=== PATIENT | male | born 1935 | race Caucasian/White ===

== ENCOUNTER 2021-04-05 13:12 | Inpatient (IN) | payer MEDICARE, OTHER ==
[2021-04-05] MEDS ORDERED: Ondansetron 4 MG Tab.DIS PO ONE (13:25)
[2021-04-05 14:00] LABS: ANION GAP 11.2 meq/L (7-15)
[2021-04-05] MEDS ORDERED: Sodium Chloride 0.9% 1,000 ML IV ONE (14:06)
[2021-04-05] MEDS ORDERED: Sodium Chloride 0.9% 10 ML Syringe FLUSH PRN (14:06)
[2021-04-05] MEDS ORDERED: Iopamidol 612 MG/ML 100 ML Bottle IVPUSH ONE (14:17)
[2021-04-05] MEDS ORDERED: Morphine 2 MG/ML SYRINGE SUBCUT PRN (15:04)
[2021-04-05] MEDS ORDERED: Morphine 2 MG/ML SYRINGE IV PRN (15:25)
--- NOTE | 2021-04-05 18:18 | EDM.PDOC ---
ED HPI GENERAL MEDICAL PROBLEM - General Chief Complaint: Abdominal Pain Stated Complaint: abdominal pain Time Seen by Provider: 04/05/21 13:24 Source of Information: Reports: Patient History Limitations: Reports: No Limitations - History of Present Illness INITIAL COMMENTS - FREE TEXT/NARRATIVE: abdominal pain/centrally, for several days. Nausea and some emesis today. Nonbilious/nonbloody. No fevers. Pain can be very sharp at times, 9/10. No previous similar pain. No history of any abdominal surgery. No bowel movement for several days. Decreased appetite. Middle Abdominal Pain Score (Numeric/FACES): 3 - Related Data Allergies Allergy/AdvReac Type Severity Reaction Status Date / Time No Known Allergies Allergy Verified 04/05/21 13:17 Home Meds: Home Meds atorvaSTATin [Lipitor] 20 mg PO DAILY 09/10/14 [History] Multivitamin with Minerals [Multiple Vitamin] 1 tab PO DAILY 08/20/16 [History] Past Medical History Cardiovascular History: Reports: Arrhythmia, CAD, High Cholesterol - Past Surgical History HEENT Surgical History: Reports: Cataract Surgery Male Surgical History: Reports: TURP-Transurethral Resection of Prostate Musculoskeletal Surgical History: Reports: Other (See Below) Other Musculoskeletal Surgeries/Procedures:: Cyst removal from left shoulder Dermatological Surgical History: Reports: Skin Graft Social & Family History - Family History Family Medical History: No Pertinent Family History - Tobacco Use Tobacco Use Status *Q: Never Tobacco User Second Hand Smoke Exposure: No - Caffeine Use Caffeine Use: Reports: Coffee - Recreational Drug Use Recreational Drug Use: No ED ROS GENERAL - Review of Systems Review Of Systems: See Below Constitutional: Reports: Chills, Diaphoresis, Decreased Appetite. Denies: Fever, Night Sweats HEENT: Reports: No Symptoms Respiratory: Reports: No Symptoms Cardiovascular: Reports: No Symptoms GI/Abdominal: Reports: Abdominal Pain, Decreased Appetite, Nausea, Vomiting, Other (no passing stool or gas for two days). Denies: Difficulty Swallowing, Distension, Hematemesis, Hematochezia : Reports: No Symptoms Musculoskeletal: Reports: Other (no acute changes from baseline) Skin: Reports: No Symptoms Neurological: Reports: No Symptoms Psychiatric: Reports: No Symptoms ED EXAM, GENERAL - Physical Exam Exam: See Below Exam Limited By: No Limitations General Appearance: Alert, Mild Distress Eye Exam: Bilateral Eye: EOMI, PERRL Ears: Hearing Grossly Normal Throat/Mouth: Normal Lips, Normal Voice, No Airway Compromise Head: Atraumatic, Normocephalic Neck: Supple Respiratory/Chest: No Respiratory Distress, Lungs Clear, Normal Breath Sounds, No Accessory Muscle Use, Chest Non-Tender Cardiovascular: Regular Rate, Rhythm, No Murmur GI/Abdominal: Soft, No Distention, Tender, Abnormal Bowel Sounds (no bowel sounds noted). No: Guarding, Rigid, Rebound (Male) Exam: Deferred Rectal (Males) Exam: Deferred Back Exam: No: CVA Tenderness (L), CVA Tenderness (R), Muscle Spasm Extremities: Normal Inspection, Normal Capillary Refill Neurological: Alert, Oriented, Normal Cognition, No Motor/Sensory Deficits Psychiatric: Normal Affect, Normal Mood Skin Exam: Warm, Dry, Intact, Normal Color Course - Vital Signs Last Recorded V/S: Last Vital Signs Temp 36.5 C 04/05/21 17:00 Pulse 76 04/05/21 17:00 Resp 18 04/05/21 17:00 BP 141/87 H 04/05/21 17:00 Pulse Ox 97 04/05/21 17:00 - Orders/Labs/Meds Orders: Active Orders 24 hr Category Date Time Status Abdomen Pelvis w Cont [CT] Stat Exams 04/05/21 14:05 Taken Abdomen Series w Chest 1V [CR] Stat Exams 04/05/21 13:25 Taken UA W/MICROSCOPIC [URIN] Stat Lab 04/05/21 14:07 Ordered Morphine Med 04/05/21 15:25 Active 2 mg IV Q1H PRN Sodium Chloride 0.9% [Saline Flush] Med 04/05/21 14:06 Active 10 ml FLUSH ASDIRECTED PRN Saline Lock Insert [OM.PC] Routine Oth 04/05/21 14:06 Ordered Medication Orders Morphine Sulfate (Morphine 2 Mg/Ml Syringe) 2 mg IV Q1H PRN PRN Reason: Pain Last Admin: 04/05/21 15:39 Dose: 2 mg Documented by: RACHEL Sodium Chloride (Sodium Chloride 0.9% 10 Ml Syringe) 10 ml FLUSH ASDIRECTED PRN PRN Reason: Keep Vein Open Labs: Laboratory Tests 04/05/21 04/05/21 04/05/21 Range/Units 13:35 13:35 13:35 WBC 8.6 (4.0-10.2) K/uL RBC 5.59 H (4.33-5.41) M/uL Hgb 16.8 (13.1-16.8) g/dL Hct 49.0 (39.0-49.0) % MCV 87.7 (84.0-98.0) fL MCH 30.1 (28.2-33.3) pg MCHC 34.3 (31.7-36.0) g/dL RDW 14.3 H (11.2-14.1) % Plt Count 214 (150-350) K/uL Neut % (Auto) 76.6 (45.0-80.0) % Lymph % (Auto) 9.2 L (10.0-50.0) % [place] % (Auto) 13.9 (2.0-14.0) % Eos % (Auto) 0.2 (0.0-5.0) % Baso % (Auto) 0.1 (0.0-2.0) % Neut # (Auto) 6.54 (1.40-7.00) K/uL Lymph # (Auto) 0.79 (0.50-3.50) K/uL [place] # (Auto) 1.19 H (0.00-1.00) K/uL Eos # (Auto) 0.02 (0.00-0.50) K/uL Baso # (Auto) 0.01 (0.00-0.20) K/uL Sodium 142 (136-145) mmol/L Potassium 4.1 (3.5-5.1) mmol/L Chloride 106 (98-107) mmol/L Carbon Dioxide 24.8 (21.0-32.0) mmol/L Anion Gap 11.2 (7-15) meq/L BUN 28 H (7-18) mg/dL Creatinine 1.20 H (0.51-1.17) mg/dL Est Cr Clr Drug Dosing 38.40 mL/min Estimated GFR (MDRD) 57 mL/min Glucose 142 H (70-99) mg/dL Lactic Acid 1.7 (0.4-2.0) mmol/L Calcium 8.9 (8.5-10.1) mg/dL Total Bilirubin 0.9 (0.2-1.0) mg/dL AST 15 (15-37) U/L ALT 26 (12-78) U/L Alkaline Phosphatase 73 (46-116) IU/L Total Protein 6.8 (6.4-8.2) g/dL Albumin 3.6 (3.4-5.0) g/dL Meds: Medications Generic Name Dose Route Start Last Admin Trade Name Freq PRN Reason Stop Dose Admin Morphine Sulfate 2 mg 04/05/21 15:25 04/05/21 15:39 Morphine 2 Mg/Ml Syringe IV 2 mg Q1H PRN Administration Pain Sodium Chloride 10 ml 04/05/21 14:06 Sodium Chloride 0.9% 10 Ml Syringe FLUSH ASDIRECTED PRN Keep Vein Open Discontinued Medications Generic Name Dose Route Start Last Admin Trade Name Freq PRN Reason Stop Dose Admin Sodium Chloride 1,000 mls @ 500 mls/hr 04/05/21 14:06 04/05/21 14:15 Normal Saline IV 04/05/21 16:05 500 mls/hr .BOLUS ONE Administration Iopamidol 100 ml 04/05/21 14:17 04/05/21 14:34 Iopamidol 612 Mg/Ml 100 Ml Bottle IVPUSH 04/05/21 14:18 100 ml ONETIME ONE Administration Morphine Sulfate 2 mg 04/05/21 15:04 Morphine 2 Mg/Ml Syringe SUBCUT Q1H PRN Pain Ondansetron HCl 4 mg 04/05/21 13:25 04/05/21 14:00 Ondansetron 4 Mg Tab.Dis PO 04/05/21 13:26 4 mg ONETIME ONE Administration - Re-Assessments/Exams Free Text/Narrative Re-Assessment/Exam: 04/05/21 18:18 CBC/Chem/lactic unremarkable overall. Plain film suggested obstruction. Small bowel obstruction confirmed by CT at 3:16pm. Results discussed patient patient and his . Plan is to admit NPO for further treatment of SBO. Departure - Departure Time of Disposition: 16:00 Disposition: Admitted As Inpatient 64 Condition: Good Clinical Impression: Small bowel obstruction - Discharge Information *PRESCRIPTION DRUG MONITORING PROGRAM REVIEWED*: Not Applicable *COPY OF PRESCRIPTION DRUG MONITORING REPORT IN PATIENT PIOTR: Not Applicable Sepsis Event Note (ED) - Evaluation Sepsis Screening Result: No Definite Risk - Focused Exam Vital Signs: Vital Signs Temp Pulse Resp BP Pulse Ox 04/05/21 13:36 128/75 04/05/21 13:18 36.2 C 87 18 127/77 97 - Problem List & Annotations (1) Small bowel obstruction SNOMED Code(s): 082791197 Code(s): K56.609 - UNSP INTESTNL OBST, UNSP TO PARTIAL VERSUS COMPLETE OBST Status: Acute Priority: High Current Visit: Yes Onset Date: ~04/03/21 Annotation/Comment:: Bowel rest/IV fluids. Consider transfer to [place] depending upon clinical course. (2) Hyperlipidemia SNOMED Code(s): 17081604 Code(s): E78.5 - HYPERLIPIDEMIA, UNSPECIFIED Status: Chronic Priority: Low Current Visit: No Annotation/Comment:: under therapy Qualifiers: Hyperlipidemia type: unspecified Qualified Code(s): E78.5 - Hyperlipidemia, unspecified - Problem List Review Problem List Initiated/Reviewed/Updated: Yes - My Orders Last 24 Hours: My Active Orders 04/05/21 13:25 Abdomen Series w Chest 1V [CR] Stat 04/05/21 14:05 Abdomen Pelvis w Cont [CT] Stat 04/05/21 14:06 Sodium Chloride 0.9% [Saline Flush] 10 ml FLUSH ASDIRECTED PRN Saline Lock Insert [OM.PC] Routine 04/05/21 14:07 UA W/MICROSCOPIC [URIN] Stat 04/05/21 15:25 Morphine 2 mg IV Q1H PRN - Assessment/Plan Admission H&P: Please use this note as an admission H&P Last 24 Hours: My Active Orders 04/05/21 13:25 Abdomen Series w Chest 1V [CR] Stat 04/05/21 14:05 Abdomen Pelvis w Cont [CT] Stat 04/05/21 14:06 Sodium Chloride 0.9% [Saline Flush] 10 ml FLUSH ASDIRECTED PRN Saline Lock Insert [OM.PC] Routine 04/05/21 14:07 UA W/MICROSCOPIC [URIN] Stat 04/05/21 15:25 Morphine 2 mg IV Q1H PRN Assessment:: as above Plan: as above. Patient and his wish to have him admitted here locally and try bowel rest/fluid support. Anticipate 3-4 day stay depending upon clinical course. Transfer if no improvement/surgical consult needed.
[2021-04-05] MEDS: Sodium Chloride 0.9% 1,000 ML IV SCH (18:29)
[2021-04-05] MEDS ORDERED: Ondansetron 4 MG/2 ML SDV IVPUSH PRN (20:34)
[2021-04-06] MEDS: Sodium Chloride 0.9% 1,000 ML IV SCH ×2 (07:42→20:50)
[2021-04-06] MEDS: Enoxaparin 40 MG/0.4 ML Syringe SUBCUT SCH (07:42)
[2021-04-06] MEDS: atorvaSTATin 10 MG Tab PO SCH (07:50)
[2021-04-06 07:51] LABS: ANION GAP 9.4 meq/L (7-15); CHLORIDE,CL 107 mmol/L (98-107); SODIUM,NA 142 mmol/L (136-145)
[2021-04-06] MEDS ORDERED: Diatrizoate Meglumine/Diatrizoate Sodium 37% 30 ML Bottle PO ONE (17:29)
--- NOTE | 2021-04-06 17:54 | PCM.PN ---
- General Info Date of Service: 04/06/21 Admission Dx/Problem (Free Text): SBO Subjective Update: Pain has improved. Small amount flatus this AM but none since. Small amount emesis x1 today. Functional Status: Reports: Pain Controlled. Denies: New Symptoms - Review of Systems General: Denies: Fever, Weakness, Chills, Night Sweats, Appetite HEENT: Reports: No Symptoms Pulmonary: Reports: No Symptoms Cardiovascular: Reports: No Symptoms Gastrointestinal: Reports: Decreased Appetite, Flatus (minimal/this AM), Other (Abd pain improved today/minimal discomfort) Genitourinary: Reports: No Symptoms Musculoskeletal: Reports: Other (No acute changes from baseline) Skin: Reports: No Symptoms Neurological: Reports: No Symptoms Psychiatric: Reports: No Symptoms - Patient Data Vitals - Most Recent: Last Vital Signs Temp 36.3 C 04/06/21 17:46 Pulse 81 04/06/21 17:46 Resp 16 04/06/21 17:46 BP 149/86 H 04/06/21 17:46 Pulse Ox 97 04/06/21 17:46 Weight - Most Recent: 76.657 kg Lab Results Last 24 Hours: Laboratory Results - last 24 hr 04/06/21 04/06/21 04/06/21 Range/Units 01:10 07:25 07:25 WBC 5.8 (4.0-10.2) K/uL RBC 5.12 (4.33-5.41) M/uL Hgb 15.5 (13.1-16.8) g/dL Hct 46.0 (39.0-49.0) % MCV 89.8 (84.0-98.0) fL MCH 30.3 (28.2-33.3) pg MCHC 33.7 (31.7-36.0) g/dL RDW 14.4 H (11.2-14.1) % Plt Count 189 (150-350) K/uL Neut % (Auto) 71.5 (45.0-80.0) % Lymph % (Auto) 13.3 (10.0-50.0) % [place] % (Auto) 14.6 H (2.0-14.0) % Eos % (Auto) 0.3 (0.0-5.0) % Baso % (Auto) 0.3 (0.0-2.0) % Neut # (Auto) 4.15 (1.40-7.00) K/uL Lymph # (Auto) 0.77 (0.50-3.50) K/uL [place] # (Auto) 0.85 (0.00-1.00) K/uL Eos # (Auto) 0.02 (0.00-0.50) K/uL Baso # (Auto) 0.02 (0.00-0.20) K/uL Sodium 142 (136-145) mmol/L Potassium 4.0 (3.5-5.1) mmol/L Chloride 107 (98-107) mmol/L Carbon Dioxide 25.6 (21.0-32.0) mmol/L Anion Gap 9.4 (7-15) meq/L BUN 31 H (7-18) mg/dL Creatinine 1.11 (0.51-1.17) mg/dL Est Cr Clr Drug Dosing 41.51 mL/min Estimated GFR (MDRD) > 60 mL/min Glucose 118 H (70-99) mg/dL Calcium 8.3 L (8.5-10.1) mg/dL Specimen Type Urinvoid Urine Color Yellow Urine Appearance Cloudy Urine pH 7.0 (5.0-9.0) Ur Specific [place] 1.015 (1.005-1.030) Urine Protein 30 H (NEGATIVE) mg/dL Urine Glucose (UA) Negative (NEGATIVE) mg/dL Urine Ketones Trace H (NEGATIVE) mg/dL Urine Occult Blood Moderate H (NEGATIVE) Urine Nitrite Positive H (NEGATIVE) Urine Bilirubin Negative (NEGATIVE) Urine Urobilinogen 0.2 (0.2-1.0) E.U./dL Ur Leukocyte Esterase Negative (NEGATIVE) Urine RBC 0-5 /HPF Urine WBC 10-20 H /HPF Ur Epithelial Cells Occasional /LPF Other Crystals Few /HPF Urine Bacteria Few (NONE TO FEW) /HPF Med Orders - Current: Current Medications Atorvastatin Calcium (Atorvastatin 10 Mg Tab) 20 mg PO DAILY [facility] Last Admin: 04/06/21 07:50 Dose: Not Given Documented by: Enoxaparin Sodium (Enoxaparin 40 Mg/0.4 Ml Syringe) 40 mg SUBCUT DAILY [facility] Last Admin: 04/06/21 07:42 Dose: 40 mg Documented by: Sodium Chloride (Normal Saline) 1,000 mls @ 75 mls/hr IV ASDIRECTED [facility]IL[facility] Last Admin: 04/06/21 07:42 Dose: 75 mls/hr Documented by: Morphine Sulfate (Morphine 2 Mg/Ml Syringe) 2 mg IV Q1H PRN PRN Reason: Pain Last Admin: 04/05/21 15:39 Dose: 2 mg Documented by: Ondansetron HCl (Ondansetron 4 Mg/2 Ml Sdv) 4 mg IVPUSH Q6H PRN PRN Reason: Nausea/Vomiting Sodium Chloride (Sodium Chloride 0.9% 10 Ml Syringe) 10 ml FLUSH ASDIRECTED PRN PRN Reason: Keep Vein Open Last Admin: 04/05/21 18:29 Dose: 10 ml Documented by: Discontinued Medications Diatrizoate Meglum/Diatrizoate Sod (Diatrizoate Meglumine/Diatrizoate Sodium 37% 30 Ml Bottle) 15 ml PO ONETIME ONE Stop: 04/06/21 17:30 Last Admin: 04/06/21 17:48 Dose: 15 ml Documented by: Sodium Chloride (Normal Saline) 1,000 mls @ 500 mls/hr IV .BOLUS ONE Stop: 04/05/21 16:05 Last Admin: 04/05/21 14:15 Dose: 500 mls/hr Documented by: Iopamidol (Iopamidol 612 Mg/Ml 100 Ml Bottle) 100 ml IVPUSH ONETIME ONE Stop: 04/05/21 14:18 Last Admin: 04/05/21 14:34 Dose: 100 ml Documented by: Morphine Sulfate (Morphine 2 Mg/Ml Syringe) 2 mg SUBCUT Q1H PRN PRN Reason: Pain Ondansetron HCl (Ondansetron 4 Mg Tab.Dis) 4 mg PO ONETIME ONE Stop: 04/05/21 13:26 Last Admin: 04/05/21 14:00 Dose: 4 mg Documented by: - Exam Quality Assessment: DVT Prophylaxis General: Alert, Oriented, Cooperative, No Acute Distress HEENT: Pupils Equal, Pupils Reactive, EOMI, Mucous Membr. Moist/[place] Neck: Supple Lungs: Clear to Auscultation, Normal Respiratory Effort Cardiovascular: Regular Rate, Regular Rhythm GI/Abdominal Exam: Soft, Tender (mild), Abnormal Bowel Sounds (absent). No: Guarding, Rigid, Rebound (Male) Exam: Deferred Back Exam: No: Muscle Spasm Extremities: Normal Inspection, Normal Capillary Refill Skin: Warm, Dry Neurological: No New Focal Deficit Psy/Mental Status: Alert, Normal Affect, Normal Mood - Patient Data Lab Results Last 24 hrs: Laboratory Results - last 24 hr 04/06/21 04/06/21 04/06/21 Range/Units 01:10 07:25 07:25 WBC 5.8 (4.0-10.2) K/uL RBC 5.12 (4.33-5.41) M/uL Hgb 15.5 (13.1-16.8) g/dL Hct 46.0 (39.0-49.0) % MCV 89.8 (84.0-98.0) fL MCH 30.3 (28.2-33.3) pg MCHC 33.7 (31.7-36.0) g/dL RDW 14.4 H (11.2-14.1) % Plt Count 189 (150-350) K/uL Neut % (Auto) 71.5 (45.0-80.0) % Lymph % (Auto) 13.3 (10.0-50.0) % [place] % (Auto) 14.6 H (2.0-14.0) % Eos % (Auto) 0.3 (0.0-5.0) % Baso % (Auto) 0.3 (0.0-2.0) % Neut # (Auto) 4.15 (1.40-7.00) K/uL Lymph # (Auto) 0.77 (0.50-3.50) K/uL [place] # (Auto) 0.85 (0.00-1.00) K/uL Eos # (Auto) 0.02 (0.00-0.50) K/uL Baso # (Auto) 0.02 (0.00-0.20) K/uL Sodium 142 (136-145) mmol/L Potassium 4.0 (3.5-5.1) mmol/L Chloride 107 (98-107) mmol/L Carbon Dioxide 25.6 (21.0-32.0) mmol/L Anion Gap 9.4 (7-15) meq/L BUN 31 H (7-18) mg/dL Creatinine 1.11 (0.51-1.17) mg/dL Est Cr Clr Drug Dosing 41.51 mL/min Estimated GFR (MDRD) > 60 mL/min Glucose 118 H (70-99) mg/dL Calcium 8.3 L (8.5-10.1) mg/dL Specimen Type Urinvoid Urine Color Yellow Urine Appearance Cloudy Urine pH 7.0 (5.0-9.0) Ur Specific [place] 1.015 (1.005-1.030) Urine Protein 30 H (NEGATIVE) mg/dL Urine Glucose (UA) Negative (NEGATIVE) mg/dL Urine Ketones Trace H (NEGATIVE) mg/dL Urine Occult Blood Moderate H (NEGATIVE) Urine Nitrite Positive H (NEGATIVE) Urine Bilirubin Negative (NEGATIVE) Urine Urobilinogen 0.2 (0.2-1.0) E.U./dL Ur Leukocyte Esterase Negative (NEGATIVE) Urine RBC 0-5 /HPF Urine WBC 10-20 H /HPF Ur Epithelial Cells Occasional /LPF Other Crystals Few /HPF Urine Bacteria Few (NONE TO FEW) /HPF Result Diagrams: 04/06/21 07:25 04/06/21 07:25 Sepsis Event Note - Evaluation Sepsis Screening Result: No Definite Risk - Focused Exam Vital Signs: Vital Signs Temp Pulse Resp BP Pulse Ox 04/06/21 17:46 36.3 C 81 16 149/86 H 97 04/06/21 07:54 36.3 C 68 16 150/91 H 94 L - Problem List & Annotations (1) Small bowel obstruction SNOMED Code(s): 291720616 Code(s): K56.609 - UNSP INTESTNL OBST, UNSP TO PARTIAL VERSUS COMPLETE O BST Status: Acute Priority: High Current Visit: Yes Onset Date: ~04/03/21 Annotation/Comment:: Bowel rest/IV fluids. No emesis noted other than small amount earlier this morning. Currently not passing gas but pain improved. Xray shows no improvement of obstruction (2) Hyperlipidemia SNOMED Code(s): 74319855 Code(s): E78.5 - HYPERLIPIDEMIA, UNSPECIFIED Status: Chronic Priority: Low Current Visit: No Qualifiers: Hyperlipidemia type: unspecified Qualified Code(s): E78.5 - Hyperlipidemia, unspecified Annotation/Comment:: under therapy - Problem List Review Problem List Initiated/Reviewed/Updated: Yes - My Orders Last 24 Hours: My Active Orders 04/05/21 Dinner Nothing per Oral Now Diet [DIET] 04/05/21 18:15 Sodium Chloride 0.9% [Normal Saline] 1,000 ml IV ASDIRECTED 04/05/21 20:34 Patient Status [ADT] Routine Height and Weight [RC] 08 May Shower [RC] 08,20 Oxygen Therapy [RC] PRN Up ad Negar [RC] ASDIRECTED VTE/DVT Education [RC] PER UNIT ROUTINE Vital Signs [RC] Q6HR Ondansetron [Zofran] 4 mg IVPUSH Q6H PRN Resuscitation Status Routine 04/05/21 20:36 Intake and Output [RC] 06,18 Pulse Oximetry [RC] PRN 04/06/21 08:00 Enoxaparin [Lovenox] 40 mg SUBCUT DAILY atorvaSTATin [Lipitor] 20 mg PO DAILY 04/06/21 13:29 UA RFX GO AND CULT IF INDIC [URIN] Stat 04/06/21 16:00 Abdomen 1V Upright [CR] Timed - Assessment Assessment:: SBO. - Plan Plan:: Reviewed patient with Dr.Dyer Ayaz/Hospitalist. She recommended trying a half a dose of gastrografin as it might help improve the obstruction and get things moving. They are willing to consider transfer to their facility tomorrow if no improvement is noted. Patient and agreeable with this plan.
[2021-04-07] MEDS: Enoxaparin 40 MG/0.4 ML Syringe SUBCUT SCH (08:44)
[2021-04-07] MEDS: atorvaSTATin 10 MG Tab PO SCH (08:45)
[2021-04-07] MEDS: Sodium Chloride 0.9% 1,000 ML IV SCH ×2 (08:45→23:45)
--- NOTE | 2021-04-07 10:10 | PCM.PN ---
- General Info Date of Service: 04/07/21 Admission Dx/Problem (Free Text): SBO Subjective Update: Pain pretty much resolved. Reports passing gas the last few hours. No BM. No nausea or vomiting noted. Functional Status: Reports: Pain Controlled - Review of Systems General: Reports: No Symptoms HEENT: Reports: No Symptoms Pulmonary: Reports: No Symptoms Cardiovascular: Reports: No Symptoms Gastrointestinal: Reports: Flatus. Denies: Abdominal Pain, Nausea, Vomiting Genitourinary: Reports: No Symptoms Musculoskeletal: Reports: No Symptoms Skin: Reports: No Symptoms Neurological: Reports: No Symptoms Psychiatric: Reports: No Symptoms - Patient Data Vitals - Most Recent: Last Vital Signs Temp 36.6 C 04/07/21 08:00 Pulse 60 04/07/21 08:00 Resp 16 04/07/21 08:00 BP 146/82 H 04/07/21 08:00 Pulse Ox 95 04/07/21 08:00 Weight - Most Recent: 76.657 kg I&O - Last 24 Hours: Intake & Output 04/06/21 04/07/21 04/07/21 22:59 06:59 14:59 Intake Total 1745 Balance 1745 Med Orders - Current: Current Medications Atorvastatin Calcium (Atorvastatin 10 Mg Tab) 20 mg PO DAILY [facility] Last Admin: 04/07/21 08:45 Dose: Not Given Documented by: Enoxaparin Sodium (Enoxaparin 40 Mg/0.4 Ml Syringe) 40 mg SUBCUT DAILY [facility] Last Admin: 04/07/21 08:44 Dose: 40 mg Documented by: Sodium Chloride (Normal Saline) 1,000 mls @ 75 mls/hr IV ASDIRECTED [facility] Last Admin: 04/07/21 08:45 Dose: 75 mls/hr Documented by: Morphine Sulfate (Morphine 2 Mg/Ml Syringe) 2 mg IV Q1H PRN PRN Reason: Pain Last Admin: 04/05/21 15:39 Dose: 2 mg Documented by: Ondansetron HCl (Ondansetron 4 Mg/2 Ml Sdv) 4 mg IVPUSH Q6H PRN PRN Reason: Nausea/Vomiting Last Admin: 04/06/21 18:59 Dose: 4 mg Documented by: Sodium Chloride (Sodium Chloride 0.9% 10 Ml Syringe) 10 ml FLUSH ASDIRECTED PRN PRN Reason: Keep Vein Open Last Admin: 04/05/21 18:29 Dose: 10 ml Documented by: Discontinued Medications Diatrizoate Meglum/Diatrizoate Sod (Diatrizoate Meglumine/Diatrizoate Sodium 37% 30 Ml Bottle) 15 ml PO ONETIME ONE Stop: 04/06/21 17:30 Last Admin: 04/06/21 17:48 Dose: 15 ml Documented by: Sodium Chloride (Normal Saline) 1,000 mls @ 500 mls/hr IV .BOLUS ONE Stop: 04/05/21 16:05 Last Admin: 04/05/21 14:15 Dose: 500 mls/hr Documented by: Iopamidol (Iopamidol 612 Mg/Ml 100 Ml Bottle) 100 ml IVPUSH ONETIME ONE Stop: 04/05/21 14:18 Last Admin: 04/05/21 14:34 Dose: 100 ml Documented by: Morphine Sulfate (Morphine 2 Mg/Ml Syringe) 2 mg SUBCUT Q1H PRN PRN Reason: Pain Ondansetron HCl (Ondansetron 4 Mg Tab.Dis) 4 mg PO ONETIME ONE Stop: 04/05/21 13:26 Last Admin: 04/05/21 14:00 Dose: 4 mg Documented by: - Exam General: Alert, Oriented HEENT: Mucous Membr. Moist/[place] Neck: Supple Lungs: Clear to Auscultation, Normal Respiratory Effort Cardiovascular: Regular Rate, Regular Rhythm GI/Abdominal Exam: Normal Bowel Sounds (x 4 quads), Soft, Non-Tender, No Dist ention (Male) Exam: Deferred Back Exam: Normal Inspection Extremities: Normal Inspection, Normal Range of Motion, No Pedal Edema Skin: Warm, Dry, Intact Neurological: No New Focal Deficit Psy/Mental Status: Alert, Normal Affect, Normal Mood - Patient Data Result Diagrams: 04/06/21 07:25 04/06/21 07:25 Sepsis Event Note - Evaluation Sepsis Screening Result: No Definite Risk - Focused Exam Vital Signs: Vital Signs Temp Pulse Resp BP Pulse Ox 04/07/21 08:00 36.6 C 60 16 146/82 H 95 04/07/21 06:00 36.4 C 64 15 152/82 H 94 L - Problem List Review Problem List Initiated/Reviewed/Updated: Yes - My Orders Last 24 Hours: My Active Orders 04/07/21 10:03 Abdomen 1V Upright [CR] Routine 04/07/21 Lunch Clear Liquid Diet [DIET] - Assessment Assessment:: 1)Small Bowel Obstruction - Plan Plan:: Bowel sounds increasing today, pain resolved. Will repeat 1V Abd Xray today to follow SBO. Also start Clear liquids and see how pt progresses. Patient agreeable to the pain.
[2021-04-08] MEDS ORDERED: Acetaminophen 325 MG Tab PO PRN (05:32)
[2021-04-08] MEDS: Enoxaparin 40 MG/0.4 ML Syringe SUBCUT SCH (07:40)
[2021-04-08] MEDS: atorvaSTATin 10 MG Tab PO SCH (07:41)
--- NOTE | 2021-04-08 09:35 | PCM.PN ---
- General Info Date of Service: 04/08/21 Admission Dx/Problem (Free Text): SBO Subjective Update: Feeling better. No pain. Has been up for a BM this AM and reports passing gas. Appetite still a bit decreased. - Review of Systems General: Reports: No Symptoms HEENT: Reports: No Symptoms Pulmonary: Reports: No Symptoms Cardiovascular: Reports: No Symptoms Gastrointestinal: Reports: No Symptoms Genitourinary: Reports: No Symptoms Musculoskeletal: Reports: No Symptoms Skin: Reports: No Symptoms Neurological: Reports: No Symptoms Psychiatric: Reports: No Symptoms - Patient Data Vitals - Most Recent: Last Vital Signs Temp 36.4 C 04/08/21 05:34 Pulse 49 L 04/08/21 05:34 Resp 14 04/08/21 05:34 BP 148/55 H 04/08/21 05:34 Pulse Ox 97 04/08/21 05:34 Weight - Most Recent: 77.292 kg I&O - Last 24 Hours: Intake & Output 04/07/21 04/08/21 04/08/21 22:59 06:59 14:59 Intake Total 2196 1080 1260 Balance 2196 1080 1260 Med Orders - Current: Current Medications Acetaminophen (Acetaminophen 325 Mg Tab) 650 mg PO Q4H PRN PRN Reason: Pain Last Admin: 04/08/21 05:45 Dose: 650 mg Documented by: Atorvastatin Calcium (Atorvastatin 10 Mg Tab) 20 mg PO DAILY [facility] Last Admin: 04/08/21 07:41 Dose: 20 mg Documented by: Enoxaparin Sodium (Enoxaparin 40 Mg/0.4 Ml Syringe) 40 mg SUBCUT DAILY [facility] Last Admin: 04/08/21 07:40 Dose: 40 mg Documented by: Morphine Sulfate (Morphine 2 Mg/Ml Syringe) 2 mg IV Q1H PRN PRN Reason: Pain Last Admin: 04/05/21 15:39 Dose: 2 mg Documented by: Ondansetron HCl (Ondansetron 4 Mg/2 Ml Sdv) 4 mg IVPUSH Q6H PRN PRN Reason: Nausea/Vomiting Last Admin: 04/06/21 18:59 Dose: 4 mg Documented by: Sodium Chloride (Sodium Chloride 0.9% 10 Ml Syringe) 10 ml FLUSH ASDIRECTED PRN PRN Reason: Keep Vein Open Last Admin: 04/05/21 18:29 Dose: 10 ml Documented by: Discontinued Medications Diatrizoate Meglum/Diatrizoate Sod (Diatrizoate Meglumine/Diatrizoate Sodium 37% 30 Ml Bottle) 15 ml PO ONETIME ONE Stop: 04/06/21 17:30 Last Admin: 04/06/21 17:48 Dose: 15 ml Documented by: Sodium Chloride (Normal Saline) 1,000 mls @ 500 mls/hr IV .BOLUS ONE Stop: 04/05/21 16:05 Last Admin: 04/05/21 14:15 Dose: 500 mls/hr Documented by: Sodium Chloride (Normal Saline) 1,000 mls @ 75 mls/hr IV ASDIRECTED [facility]ILARIA Last Admin: 04/07/21 23:45 Dose: 75 mls/hr Documented by: Iopamidol (Iopamidol 612 Mg/Ml 100 Ml Bottle) 100 ml IVPUSH ONETIME ONE Stop: 04/05/21 14:18 Last Admin: 04/05/21 14:34 Dose: 100 ml Documented by: Morphine Sulfate (Morphine 2 Mg/Ml Syringe) 2 mg SUBCUT Q1H PRN PRN Reason: Pain Ondansetron HCl (Ondansetron 4 Mg Tab.Dis) 4 mg PO ONETIME ONE Stop: 04/05/21 13:26 Last Admin: 04/05/21 14:00 Dose: 4 mg Documented by: - Exam General: Alert, Oriented (Elderly male), No Acute Distress HEENT: Mucous Membr. Moist/[place] Lungs: Clear to Auscultation, Normal Respiratory Effort Cardiovascular: Regular Rate, Regular Rhythm GI/Abdominal Exam: Normal Bowel Sounds, Soft, No Distention, Other (Protuberant) (Male) Exam: Deferred Extremities: Normal Inspection, Normal Range of Motion, No Pedal Edema Skin: Warm, Dry, Intact Neurological: No New Focal Deficit Psy/Mental Status: Alert, Normal Affect, Normal Mood - Patient Data Result Diagrams: 04/06/21 07:25 04/06/21 07:25 Sepsis Event Note - Evaluation Sepsis Screening Result: No Definite Risk - Focused Exam Vital Signs: Vital Signs Temp Pulse Resp BP Pulse Ox 04/08/21 05:34 36.4 C 49 L 14 148/55 H 97 04/07/21 22:23 35.6 C L 52 L 20 155/75 H 94 L - Problem List & Annotations (1) Small bowel obstruction SNOMED Code(s): 184065634 Code(s): K56.609 - UNSP INTESTNL OBST, UNSP TO PARTIAL VERSUS COMPLETE O BST Status: Acute Priority: High Current Visit: Yes Onset Date: ~04/03/21 Annotation/Comment:: Has had a BM late last night and this AM. Good BS noted. Patient passing gas. Will increase diet to make sure he continues to do okay. Repeat Abdominal Xray today to confirm resolution of SBO. D/C IV fluids this AM. - Problem List Review Problem List Initiated/Reviewed/Updated: Yes - My Orders Last 24 Hours: My Active Orders 04/07/21 10:03 Abdomen 1V Upright [CR] Routine 04/08/21 09:28 Abdomen 1V Upright [CR] Routine 04/08/21 Lunch Full Liquid Diet [DIET] - Assessment Assessment:: 1)Small Bowel Obstruction - Plan Plan:: -SBO seems to be resolving. -Home later today.
[2021-04-08] MEDS ORDERED: Iopamidol 612 MG/ML 100 ML Bottle IVPUSH STA (13:13)
--- NOTE | 2021-04-08 18:10 | PCM.SN.2 ---
- Free Text/Narrative Note: S: Consulted with [facility] Surgeon regional sales representative, Dr Hansen, and discussed results of abdominal xray done today. He advises CT. Patient still complaining of bloating and distention. O: CT Abd/Pelvis W=note persisting SBO, probable high grade with a closed loop obstruction or internal hernia; advises surgical consult. (See final report) A/P: 1)Persistent Small Bowel Obstruction -Case discussed with Dr Ren, hospitalist regional sales representative at [facility]. Patient accepted for transfer to [facility] for inpatient care.
[2021-04-08 22:42] VITALS: BP 150/63; PULSE 48
== END 2021-04-08 22:42 | DRG 390 ==
LOC: LL.ED 13:12 → UNDOADMIN 16:00 → LL.MS 16:00 → UNDODISIN 04-08 22:42
PROVIDERS: ADMIT Emergency Medicine; ATTEND Emergency Medicine
DX: K56.609 Unspecified intestinal obstruction, unspecified as to partial versus complete obstruction (principal); Z79.899 Other long term (current) drug therapy; I25.10 Atherosclerotic heart disease of native coronary artery without angina pectoris; E78.00 Pure hypercholesterolemia, unspecified; Z98.49 Cataract extraction status, unspecified eye; I49.9 Cardiac arrhythmia, unspecified; Z98.890 Other specified postprocedural states; E78.5 Hyperlipidemia, unspecified; Z20.822 Contact with and (suspected) exposure to COVID-19
CPT/HCPCS: 36415; 74018; 74022; 74177; 80048; 80053; 81001; 83605; 85025; 87086; 96374; 99223; 99232; 99233; 99238; 99285-25; A9270-GY; J1650; J2270; J2405; J7030; Q9963; Q9967; U0002